=== PATIENT | female | born 1935 | race Caucasian/White ===

== ENCOUNTER → 2017-10-24 | Outpatient (CLI) | payer OTHER ==
[~2017-10-24] MED LIST: ADALAT CC60 MG PO; BENEFIBER PO; BENEFIBER1 G1 PO; CALCIUM +D & M1 EACH; CIPRO500 MG PO; DETROL LA4 MG PO; ERYTHROMYCIN250 M1 PO; FLAGYL500 M1 PO; LISINOPRIL-HCT1 EAC1 PO; LISINOPRIL-HCT1 EACH PO; METFORMIN HCL500 MG PO; MULTIVITAMINS1 EAC7 PO; NORVASC 5 MG TAB5 MG PO; PRILOSEC 20 MG20 MG PO; PROAIR HFA8.5 GM IH; SIMVASTATIN40 MG PO; SINGULAIR 10 MG10 M1 PO; TOPROL XL50 MG PO; VITAMIN D31000 UNI2 PO
== END ==
LOC: M.RAD 14:19
DX: J45.30 Mild persistent asthma, uncomplicated (principal); K44.9 Diaphragmatic hernia without obstruction or gangrene; R63.4 Abnormal weight loss

== ENCOUNTER → 2017-11-01 | Outpatient (CLI) | payer OTHER | LOC: M.LAB 10-25 14:43 → M.CT 09:31 | DX: K44.9 Diaphragmatic hernia without obstruction or gangrene (principal); K76.0 Fatty (change of) liver, not elsewhere classified; R63.4 Abnormal weight loss; I10 Essential (primary) hypertension; M81.0 Age-related osteoporosis without current pathological fracture; K21.9 Gastro-esophageal reflux disease without esophagitis; J45.30 Mild persistent asthma, uncomplicated ==

== ENCOUNTER → 2020-02-24 | Outpatient (CLI) | payer OTHER | LOC: M.RAD 11:58 | PROVIDERS: ATTEND Internal Medicine | DX: M41.85 Other forms of scoliosis, thoracolumbar region (principal); K44.9 Diaphragmatic hernia without obstruction or gangrene; J84.10 Pulmonary fibrosis, unspecified; I70.0 Atherosclerosis of aorta ==